=== PATIENT | male | born 1970 | race Caucasian/White ===

== ENCOUNTER 2019-08-25 01:44 | Emergency (ER) | payer BC ==
--- NOTE | 2019-08-25 02:27 | Emergency Department Report ---
ED Male HPI - General Chief complaint: Rectal Pain Stated complaint: RECTAL PAIN Time Seen by Provider: 08/25/19 02:21 Source: patient Mode of arrival: Ambulatory Limitations: No Limitations - History of Present Illness Initial comments: 49-year-old male presents to the emergency for right side rectal pain 1 week. Patient denies any trauma to the rectum area. Patient denies any discharge no diarrhea no constipation. Patient does report painful with bowel movement just on the right side. Patient reports that ibuprofen helps for his p ain. He has no primary care provider. MD Complaint: other (rectal pain) Onset/Timin -: week(s) Severity: moderate Severity scale (0 -10): 5 Quality: aching Improves with: medication (ibuprofen) Worsens with: bowel movement denies other symptoms - Related Data Previous Rx's Medication Instructions Recorded Last Taken Type Hydrocortisone/Pramoxine 30 gm RC QHS 7 Days #7 cream.[email or web address] 08/25/19 Unknown Rx [Hydrocort-Pramoxine 1%-1% Crm] Allergies Allergy/AdvReac Type Severity Reaction Status Date / Time No Known Allergies Allergy Unverified 04/27/14 06:29 ED Review of Systems ROS: Stated complaint: RECTAL PAIN Other details as noted in HPI Comment: All other systems reviewed and negative ED Past Medical Hx - Past Medical History Previous Medical History?: No - Surgical History Past Surgical History?: Yes Additional Surgical History: right toe, brain - Social History Smoking Status: Never Smoker Substance Use Type: Alcohol - Medications Home Medications: Home Medications Medication Instructions Recorded Confirmed Last Taken Type Hydrocortisone/Pramoxine 30 gm RC QHS 7 Days #7 cream.appl 08/25/19 Unknown Rx [Hydrocort-Pramoxine 1%-1% Crm] ED Physical Exam - General Limitations: No Limitations General appearance: alert, in no apparent distress - Head Head exam: Present: atraumatic, normocephalic - Eye Eye exam: Present: normal appearance - ENT ENT exam: Present: mucous membranes moist - Rectal Rectal exam: Present: normal inspection, normal rectal tone, tenderness. Absent: black stool, bloody stool, fecal impaction, mass - Extremities Exam Extremities exam: Present: normal inspection, full ROM - Back Exam Back exam: Present: normal inspection - Neurological Exam Neurological exam: Present: alert, oriented X3, normal gait - Psychiatric Psychiatric exam: Present: normal affect, normal mood - Skin Skin exam: Present: warm, dry, intact, normal color. Absent: rash ED Course Vital Signs 08/25/19 01:49 Temperature 98.4 F Pulse Rate 85 Respiratory 20 Rate Blood Pressure 136/84 O2 Sat by Pulse 98 Oximetry ED Medical Decision Making - Medical Decision Making 49-year-old male presents to the emergency for right side rectal pain 1 week. Patient denies any trauma to the rectum area. Patient denies any discharge no diarrhea no constipation. Patient does report painful with bowel movement just on the right side. Patient reports that ibuprofen helps for his pain. He has no primary care provider. Critical care attestation.: If time is entered above; I have spent that time in minutes in the direct care of this critically ill patient, excluding procedure time. ED Disposition Clinical Impression: Rectal or anal pain Disposition: TO HOME OR SELFCARE Is pt being admited?: No Does the pt Need Aspirin: No Condition: Stable Prescriptions: Hydrocortisone/Pramoxine [Hydrocort-Pramoxine 1%-1% Crm] 30 gm RC QHS 7 Days #7 cream.appl Referrals: KATHE KINNEY MD [Staff Physician] - 3-5 Days
[2019-08-25 04:29] VITALS: BP 119/68
== END 2019-08-25 02:44 | disposition home or self-care (01) ==
LOC: ED 01:44
DX: K62.89 Other specified diseases of anus and rectum (principal)
CPT/HCPCS: 99282